=== PATIENT | male | born 1960 | race Caucasian/White ===

== ENCOUNTER 2019-05-07 11:29 | Day surgery (SDC) | payer BC ==
[~2019-05-07] VITALS: Ht 182.9 cm; Wt 149.7 kg
[~2019-05-07 11:29] MED LIST: AMIO200T4 PO; FURO20TA3 PO; LEVO88TA4 PO; METO100T87 PO; RIVA20TA PO; TERB250T66 PO
[2019-05-07] MEDS ORDERED: fentaNYL CITRATE 100 MCG/2 ML VL IV ONE (12:15)
[2019-05-07] MEDS ORDERED: LIDOCAINE VISCOUS 2% 15ML UD PO ONE (12:15)
[2019-05-07] MEDS ORDERED: MIDAZOLAM HCL 1MG/1ML-2 ML VIAL IV ONE (12:15)
[2019-05-07] MEDS ORDERED: diphenhdrAMINE HCL 50 MG/1 ML VL IV ONE (12:15)
== END 2019-05-07 14:10 | disposition home or self-care (01) ==
LOC: CATH 11:29
PROVIDERS: ATTEND Internal Medicine
DX: I48.91 Unspecified atrial fibrillation (principal); I08.3 Combined rheumatic disorders of mitral, aortic and tricuspid valves; I11.0 Hypertensive heart disease with heart failure; I50.9 Heart failure, unspecified; G47.33 Obstructive sleep apnea (adult) (pediatric); E66.9 Obesity, unspecified; Z79.899 Other long term (current) drug therapy; Z87.891 Personal history of nicotine dependence; Z98.890 Other specified postprocedural states; Z68.41 Body mass index [BMI] 40.0-44.9, adult
CPT/HCPCS: 92960; 93005; 93312; C1887; C1894; J1200; J2250; J3010; 99152

== ENCOUNTER 2021-02-23 13:00 | Emergency (ER) | payer BC ==
[~2021-02-23] VITALS: Ht 182.9 cm; Wt 154.2 kg
[2021-02-23 14:56] LABS: Eosinophils # (auto) 0 10 ^3/uL (0-0.8); Eosinophils % (auto) 0.2 % (0.0-7.0); Neutrophils # (auto) 5.2 10 ^3/uL (1.6-8.6); Nucleated Red Blood Cells % 0.3 %
[2021-02-23 14:58] LABS: Basophils # (auto) 0.1 10 ^3/uL (0-0.2); Basophils % (auto) 1.1 % (0.0-2.0); Hematocrit 50.5 % (41.0-53.0); Hemoglobin 16.4 g/dL (13.5-17.5); Lymphocytes # (auto) 1.5 10 ^3/uL (0.4-5.4); Lymphocytes % (auto) 19.7 % (10.0-50.0); Mean Corpuscular Hemoglobin 27.5 pg (28.0-32.0); Mean Corpuscular Hgb Conc. 32.5 g/dL (32.0-36.0); Mean Corpuscular Volume 84.5 fL (80.0-100.0); Monocytes # (auto) 0.7 10 ^3/uL (0-1.3); Monocytes % (auto) 8.9 % (0.0-12.0); Neutrophils % (auto) 70.1 % (37.0-80.0); Red Blood Cells 5.98 10^6/uL (4.5-5.90); Red Cell Distribution Width 15.7 % (11.8-14.3); White Blood Cell 7.4 10^3/uL (4.4-10.8)
[2021-02-23] MEDS ORDERED: AZITHROMYCIN 500MG/ 250ML 250 ML IV ONE (15:00)
[2021-02-23] MEDS ORDERED: dilTIAZem 25 MG/5 ML VIAL IV ONE ×2 (15:00→17:30)
[2021-02-23] MEDS ORDERED: DexAMETHasone SOD PHOS 10MG/1ML VIAL INJ IV ONE (15:00)
[2021-02-23] MEDS ORDERED: cefTRIAXone 1GM/50ML D5W 50 ML IV ONE (15:00)
[2021-02-23 15:10] LABS: BUN/Creatinine Ratio 17.1; Potassium 4.3 mmol/L (3.5-5.1)
[2021-02-23 15:11] LABS: Albumin 2.9 g/dL (3.4-5.0); Calcium 8.4 mg/dL (8.5-10.1)
[2021-02-23 15:15] LABS: Bilirubin, Total 0.5 mg/dL (0.2-1.0); Total Protein 7.4 g/dL (6.4-8.2)
[2021-02-23 17:29] VITALS: BP 105/58
== END 2021-02-23 17:43 | disposition home or self-care (01) ==
LOC: ER 13:00
DX: U07.1 COVID-19 (principal); J12.82 Pneumonia due to coronavirus disease 2019; I48.91 Unspecified atrial fibrillation; Z90.49 Acquired absence of other specified parts of digestive tract; Z90.89 Acquired absence of other organs
CPT/HCPCS: 36415; 71045; 80053; 83880; 84484; 85025; 93005; 96365; 96366; 96368; 96375; 99285; J0456; J0696; J1100